=== PATIENT | female | born 1930 ===

== ENCOUNTER 2017-07-07 16:28 | Inpatient (IN) | payer MEDICARE, OTHER ==
--- NOTE | 2017-07-07 17:22 | C.PDOC ---
History Of Present Illness 86 yr old female presents to the ER referred from Dr. 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 Patient reports of chronic urinary incontinence. Patient is also s/p left ankle fracture on 07/05, states initially treated in [place] and is s/p partial casting by Dr. Zahraa BOYD. Patient states she has not had any evaluation since being in [place]. Denies chest pain, SOB, cough, abdominal pain, weakness or numbness. REFERRED FROM DR VITAL FOR SYNCOPE, VOMITING FURNACE ATTENDANT. SUBJ FEVER. NO COUGH, ABD PAIN. CHRONIC URINARY INCONT. S/P L ANKLE FX 07/05 INITIALLY TREATED IN [place]. S/P PARTIAL CASTING BY DR ZAHRAA BOYD. NO EVAL FOR FX SINCE BEING IN [place]. PT USING WC @ HOME, GETTING OUT OF BED. EXAM MILD DIST NONTOXIC HEENT NEG LUNGS NEG ABD NEG EXT +L POST LEG SPLINT W PARTIAL CASTING MALLEOLAR AREA. NO GROSS leg asymmetry. GOOD DISTAL PERFUSION L FOOT SKIN NEG REMAINDE RNEG Time Seen by Provider: 07/07/17 17:06 Chief Complaint (Nursing): Lower Extremity Problem/Injury History Per: Patient History/Exam Limitations: no limitations Onset/Duration Of Symptoms: Sudden Onset (FURNACE ATTENDANT) Past Medical History Reviewed: Historical Data, Nursing Documentation, Vital Signs Vital Signs: Last Vital Signs Temp 99.2 F 07/07/17 16:46 Pulse 112 H 07/07/17 18:45 Resp 20 07/07/17 18:45 BP 127/57 L 07/07/17 18:45 Pulse Ox 93 L 07/07/17 18:45 - Medical History PMH: Arthritis, Asthma Surgical History: Cholecystectomy - [facility] Procedures PERCUTAN NEEDLE BX OF THYROID GLAND (01/26/06) Family History: States: No Known Family Hx - Social History Hx Alcohol Use: No Hx Substance Use: No - Immunization History Hx Tetanus Toxoid Vaccination: No Hx Influenza Vaccination: No Hx Pneumococcal Vaccination: No Review Of Systems Except As Marked, All Systems Reviewed And Found Negative. Constitutional: Positive for: Fever (Subjective ) Respiratory: Negative for: Cough Gastrointestinal: Positive for: Vomiting. Negative for: Abdominal Pain Neurological: Negative for: Weakness, Numbness Physical Exam - Physical Exam Appears: Non-toxic, In Acute Distress (Mild ) Skin: Warm, Dry Head: Atraumatic, Normacephalic Neck: Normal, Normal ROM, Supple Chest: Symmetrical, No Tenderness Cardiovascular: Rhythm Regular, No Murmur Respiratory: Normal Breath Sounds, No Rales, No Rhonchi, No Stridor, No Wheezing Gastrointestinal/Abdominal: Normal Exam, Soft, No Tenderness, No Guarding, No Rebound Extremity: Other ((+) Left posterior leg splint with partial casting malleolar area. (-) Gross swelling. ) Neurological/Psych: Oriented x3, Normal Speech, Normal Motor, Normal Sensation ED Course And Treatment - Laboratory Results Result Diagrams: 07/07/17 18:12 07/07/17 18:12 ECG: Interpreted By Me ECG Rhythm: Sinus Tachycardia Interpretation Of ECG: TWI V2-V6 NEW COMPARED TO 2006 Rate From EC (BPM) O2 Sat by Pulse Oximetry: 93 (RA) Pulse Ox Interpretation: Abnormal - Radiology CXR: Interpreted by Me CXR Interpretation: Yes: No Acute Disease (ujnch prior) - Other Rad L ANKLE X-Ray: Interpreted by Me (TRIMAL DISPLACED) L TIB FIB X-Ray: Interpreted by Me (NEG) L FOOT X-Ray: Interpreted by Me (NEG) Progress - Re-Evaluation Re-evaluation Note: 07/07/17 18:01 PENDING CALLBACK PODIATRY 07/07/17 18:11 D/W PODIATRY RESIDENT WILL EVAL IN ER - Data Reviewed Data Reviewed: Lab, Diagnostic imaging, EKG, Old records - Critical Care Citical Care: Excluding Proc Time Critical Care Time: 120 minutes - Continuity of Care Discussed patient case with:: Patient, Family-HIPPA compliant Medical Decision Making Medical Decision Making: PLAN: * CT - Angio Chest * CXR * EKG * Troponin * VBG * CBC * CMP * Influenza * Urinalysis * Tylneol PO * Sodium Chloride IV Disposition Counseled Patient/Family Regarding: Studies Performed, Diagnosis - Disposition Disposition Time: 19:00 Condition: STABLE Forms: [facility] (Singaporean) - Clinical Impression Clinical Impression: Trimalleolar fracture, Tachycardia, Hypoxia, Fever - Scribe Statement The provider has reviewed the documentation as recorded by the Lucyibe Carin Burnett Provider Attestation: All medical record entries made by the Lucyibmitzy were at my direction and personally dictated by me. I have reviewed the chart and agree that the record accurately reflects my personal performance of the history, physical exam, medical decision making, and the department course for this patient. I have also personally directed, reviewed, and agree with the discharge instructions and disposition. Physician Patient Turnover Patient Signed Over To: Romain Best Handoff Comments: XIOMY CT, DISPO
[2017-07-07] MEDS ORDERED: Sodium Chloride 0.9% 1,000 ML IV ONE (17:23)
[2017-07-07 18:22] LABS: BASO % 0.4 % (0.0-2.0); EOS % 0.4 % (0.0-4.0); HEMATOCRIT 33.8 % (34.0-47.0); LYMPH # 0.5 K/uL (1.0-4.3); LYMPH % 6.2 % (20.0-40.0); MEAN CELL VOLUME 81.2 fL (81.0-99.0); MEAN CORPUSCULAR HEMOGLOBIN 27.5 pg (27.0-31.0); MEAN CORPUSCULAR HGB CONC 33.9 g/dL (33.0-37.0); MEAN PLATELET VOLUME 10.1 fL (7.2-11.7); MONO # 0.7 K/uL (0.0-0.8); MONO % 9.1 % (0.0-10.0); PLATELET COUNT 261 K/uL (130-400); RED CELL DISTRIBUTION WIDTH 14.2 % (11.5-14.5); WHITE BLOOD COUNT 7.3 K/uL (4.8-10.8)
[2017-07-07 18:24] LABS: CHLORIDE 101 mmol/L (98-107)
[2017-07-07 18:25] LABS: POTASSIUM 4.2 mmol/L (3.6-5.2); SODIUM 139 mmol/L (132-148)
[2017-07-07 18:27] LABS: VENOUS BLOOD GAS BASE EXCESS 3.5 mmol/L (0.0-2.0); VENOUS BLOOD GAS PCO2 40 mmHg (40-60); VENOUS BLOOD PH 7.45 (7.32-7.43)
[2017-07-07 18:27] LABS: ALB/GLOB RATIO 1.1 (1.0-2.1); ALKALINE PHOSPHATASE 67 U/L (38-126); ALT/SGPT 31 U/L (9-52); AST/SGOT 24 U/L (14-36); BILIRUBIN,TOTAL 0.7 mg/dL (0.2-1.3); BLOOD UREA NITROGEN 13 mg/dL (7-17); CARBON DIOXIDE 25 mmol/L (22-30); GFR AFRICAN-AMERICAN > 60; GLUCOSE,RANDOM 134 mg/dL (65-105); PHOSPHOROUS 2.3 mg/dL (2.5-4.5)
[2017-07-07 18:28] LABS: CALCIUM 8.5 mg/dl (8.6-10.4); MAGNESIUM 1.7 mg/dL (1.6-2.3)
--- NOTE | 2017-07-07 18:44 | RAD ---
HISTORY: Sepsis Patient COMPARISON: Chest x-ray performed 01/01/17 TECHNIQUE: Chest, one view. FINDINGS: Examination limited by habitus. LUNGS: No focal consolidation. Please note that chest x-ray has limited sensitivity for the detection of pulmonary masses. PLEURA: No significant pleural effusion identified. No definite pneumothorax . CARDIOVASCULAR: Heart size appears within normal limits. Atherosclerotic calcifications of the aortic knob. OSSEOUS STRUCTURES: Degenerative changes of the spine. VISUALIZED UPPER ABDOMEN: Unremarkable. OTHER FINDINGS: None. IMPRESSION: No focal consolidation, significant pleural effusion, or definite pneumothorax identified.
--- NOTE | 2017-07-07 18:54 | RAD ---
PROCEDURE: Left tibia and fibula radiographs Left ankle radiographs Left foot radiographs HISTORY: TRAUMA COMPARISON: None available. FINDINGS: Images are obtained through a cast which obscures osseous detail. Oblique mildly displaced fractures of the distal fibula and medial malleolus. The ankle mortise is disrupted. Evidence of oblique fracture involving the posterior distal tibia. Soft tissue swelling. No evidence of retained radiopaque foreign body. IMPRESSION: Oblique mildly displaced fractures of the distal fibula and medial malleolus. The ankle mortise is disrupted. Evidence of oblique fracture involving the posterior distal tibia. Soft tissue swelling.
[2017-07-07 19:12] LABS: EOSINOPHIL 1 % (0-4); NEUTROPHIL 85 % (50-75); REACTIVE LYMPHOCYTES 2 % (0-0); TOTAL CELLS COUNTED 100
[2017-07-07] MEDS ORDERED: Iodixanol 320 MG/ML 100 ML BOTTLE IV ONE (19:19)
--- NOTE | 2017-07-07 20:20 | CT ---
EXAM: CT Head Without Intravenous Contrast EXAM DATE/TIME: Exam ordered 07/07/2017 7:22 PM CLINICAL HISTORY: 86 years old, female; Signs and symptoms; Syncope and collapse TECHNIQUE: Axial computed tomography images of the head/brain without intravenous contrast. All CT scans at this facility use one or more dose reduction techniques, viz.: automated exposure control; ma/kV adjustment per patient size (including targeted exams where dose is matched to indication; i.e. head); or iterative reconstruction technique. COMPARISON: No relevant prior studies available. FINDINGS: Brain: There are bilateral basal ganglia calcifications. Minimal low density is noted within the periventricular white matter extending into the fong radiata and centrum semiovale bilaterally. 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 No edema. Ventricles: Unremarkable. No ventriculomegaly. Bones/joints: Unremarkable. No acute fracture. Soft tissues: Unremarkable. Sinuses: Unremarkable as visualized. No acute sinusitis. Mastoid air cells: Unremarkable as visualized. No mastoid effusion. IMPRESSION: 1. No acute findings. 2. Mild chronic microvascular ischemic change in the deep white matter
--- NOTE | 2017-07-07 20:30 | CT ---
EXAM: CT Angiography Chest With Intravenous Contrast EXAM DATE/TIME: Exam ordered 07/07/2017 5:25 PM CLINICAL HISTORY: 86 years old, female; Signs and symptoms; Shortness of breath; Additional info: SOB R/O pe TECHNIQUE: Axial computed tomographic angiography images of the chest with intravenous contrast using pulmonary embolism protocol. All CT scans at this facility use one or more dose reduction techniques, viz.: automated exposure control; ma/kV adjustment per patient size (including targeted exams where dose is matched to indication; i.e. head); or iterative reconstruction technique. MIP reconstructed images were created and reviewed. Coronal and sagittal reformatted images were created and reviewed. CONTRAST: 100 mL of visipaque 320 administered intravenously. COMPARISON: CR - CHEST TWO VIEWS (PA/LAT) 01/04/2016 11:54:53 AM FINDINGS: Pulmonary arteries: Unremarkable. No pulmonary embolism. Aorta: No acute findings. No thoracic aortic aneurysm. Lungs: 1.3 cm lobulated nodule is noted in the anterior segment of the left upper lobe. (Series 4 image 29). No mass. Pleural space: Unremarkable. No significant effusion. No pneumothorax. Heart: Unremarkable. No cardiomegaly. No significant pericardial effusion. No evidence of RV dysfunction. Mediastinum: There are sliding hiatal hernia. Air-fluid levels noted within the distal esophagus Bones/joints: No acute fracture. No dislocation. Soft tissues: Unremarkable. Lymph nodes: Unremarkable. No enlarged lymph nodes. Liver: The liver is low in density. Clips/Calcifications are noted within the liver IMPRESSION: 1. No pulmonary embolism. 2. Lobulated 1.3 cm nodule in the anterior segment of the left upper lobe. Recommend PET/CT, biopsy or resection. 3. Sliding hiatal hernia. Air-fluid level indicates gastroesophageal reflux disease.
[2017-07-07] MEDS ORDERED: Piperacillin/Tazobact 3.375 gm 100 ML IVPB STA (20:37)
[2017-07-07] MEDS ORDERED: Piperacillin/Tazobact 3.375 gm 100 ML IVPB ONE (21:01)
--- NOTE | 2017-07-07 22:10 | CP.PCM.HP ---
Past Patient History - Past Social History Smoking Status: Never Smoked - PULMONARY Hx Asthma: Yes - ENDOCRINE/METABOLIC Hx Diabetes Mellitus Type 2: Yes - MUSCULOSKELETAL/RHEUMATOLOGICAL Hx Arthritis: Yes - PSYCHIATRIC Hx Substance Use: No - SURGICAL HISTORY Hx Cholecystectomy: Yes - ANESTHESIA Hx Anesthesia: Yes Hx Anesthesia Reactions: No Meds Allergies/Adverse Reactions: Allergies Allergy/AdvReac Type Severity Reaction Status Date / Time No Known Allergies Allergy Verified 07/07/17 16:46 Results - Vital Signs Recent Vital Signs: Last Vital Signs Temp 99.9 F H 07/07/17 19:55 Pulse 106 H 07/07/17 19:55 Resp 19 07/07/17 19:55 BP 102/58 L 07/07/17 19:55 Pulse Ox 95 07/07/17 19:55 - Labs Result Diagrams: 07/07/17 18:12 07/07/17 18:12 Labs: Laboratory Results - last 24 hr 07/07/17 07/07/17 07/07/17 18:12 18:12 18:12 WBC 7.3 RBC 4.17 Hgb 11.5 Hct 33.8 L MCV 81.2 MCH 27.5 MCHC 33.9 RDW 14.2 Plt Count 261 MPV 10.1 Neut % (Auto) 83.9 H Lymph % (Auto) 6.2 L [place] % (Auto) 9.1 Eos % (Auto) 0.4 Baso % (Auto) 0.4 Neut # 6.2 Lymph # 0.5 L [place] # 0.7 Eos # 0.0 Baso # 0.0 Neutrophils % (Manual) 85 H Lymphocytes % (Manual) 6 L Reactive Lymphs % 2 H Monocytes % (Manual) 6 Eosinophils % (Manual) 1 Platelet Estimate Normal Anisocytosis (manual) Slight PT 11.4 INR 1.0 APTT 28 pO2 VBG pH VBG pCO2 VBG HCO3 VBG Total CO2 VBG O2 Sat (Calc) VBG Base Excess VBG Potassium Glucose Lactate Sodium 139 Potassium 4.2 Chloride 101 Carbon Dioxide 25 Anion Gap 17 BUN 13 Creatinine 0.8 Est GFR ( Amer) > 60 Est GFR (Non-Af Amer) > 60 Random Glucose 134 H Calcium 8.5 L Phosphorus 2.3 L Magnesium 1.7 Total Bilirubin 0.7 AST 24 ALT 31 Alkaline Phosphatase 67 Troponin I < 0.0120 Total Protein 8.0 Albumin 4.3 Globulin 3.7 Albumin/Globulin Ratio 1.1 Venous Blood Potassium Influenza Typ A,B (EIA) 07/07/17 07/07/17 18:23 18:24 WBC RBC Hgb Hct MCV MCH MCHC RDW Plt Count MPV Neut % (Auto) Lymph % (Auto) [place] % (Auto) Eos % (Auto) Baso % (Auto) Neut # Lymph # [place] # Eos # Baso # Neutrophils % (Manual) Lymphocytes % (Manual) Reactive Lymphs % Monocytes % (Manual) Eosinophils % (Manual) Platelet Estimate Anisocytosis (manual) PT INR APTT pO2 40 VBG pH 7.45 H VBG pCO2 40 VBG HCO3 27.1 VBG Total CO2 29.0 H VBG O2 Sat (Calc) 80.9 H VBG Base Excess 3.5 H VBG Potassium 3.9 Glucose 153 H Lactate 1.4 Sodium 136.0 Potassium Chloride 106.0 Carbon Dioxide Anion Gap BUN Creatinine Est GFR ( Amer) Est GFR (Non-Af Amer) Random Glucose Calcium Phosphorus Magnesium Total Bilirubin AST ALT Alkaline Phosphatase Troponin I Total Protein Albumin Globulin Albumin/Globulin Ratio Venous Blood Potassium 3.9 Influenza Typ A,B (EIA) Negative for flu a/b
[2017-07-07] MEDS: Piperacill/Tazo 3.375gm in Dex 3.375 GM/50 ML BAG IVPB SCH (22:30)
[2017-07-07 22:50] LABS: RBC URINE 2 /hpf (0-3); URINE BILIRUBIN NEGATIVE (NEGATIVE); URINE BLOOD NEGATIVE (NEGATIVE); URINE COLOR Yellow (YELLOW); URINE GLUCOSE (UA) NORMAL (Normal); URINE KETONE NEGATIVE (NEGATIVE); URINE LEUKOCYTE ESTERASE NEG Leu/uL (Negative); URINE PROTEIN NEGATIVE (NEGATIVE); WBC URINE < 1 /hpf (0-5)
--- NOTE | 2017-07-08 01:15 | CP.PCM.CON ---
History of Present Illness - History of Present Illness History of Present Illness: 86 year old female with PMH of DM, arthritis, esophagus hernia, vertigo and asthma was seen in the ED s/p 2 days right ankle fracture. Patient is Sinhala speaking. Patient is accompanied by her 3 daughters at bedside. Patient sustained the injury when she missed a step on the sidewalk, falling down. She rates her ankle pain 9/10 and describes the pain as a throbbing pain. She went to the ED in [place] where AO splint is applied. AO splint is clean, dry , and intact. She presents to the ED for syncope, vomitting, and fever. PSH: thyroidectomy, gall bladder removal, uterus removal SH: former smoker , denies alcohol use or elicited drug use Meds: See med list All: NKDA FH: unknown Past Patient History - Past Social History Smoking Status: Never Smoked - PULMONARY Hx Asthma: Yes - ENDOCRINE/METABOLIC Hx Diabetes Mellitus Type 2: Yes - MUSCULOSKELETAL/RHEUMATOLOGICAL Hx Arthritis: Yes - PSYCHIATRIC Hx Substance Use: No - SURGICAL HISTORY Hx Cholecystectomy: Yes - ANESTHESIA Hx Anesthesia: Yes Hx Anesthesia Reactions: No Meds Allergies/Adverse Reactions: Allergies Allergy/AdvReac Type Severity Reaction Status Date / Time No Known Allergies Allergy Verified 07/07/17 16:46 - Medications Medications: Current Medications Acetaminophen (Tylenol 325mg Tab) 650 mg PO Q8 PRN PRN Reason: Pain, moderate (4-7) Last Admin: 07/07/17 23:32 Dose: 650 mg Enoxaparin Sodium (Lovenox) 40 mg SC DAILY [facility] Sodium Chloride (Sodium Chloride 0.9%) 1,000 mls @ 100 mls/hr IV .Q10H ONE Stop: 07/08/17 03:22 Last Admin: 07/07/17 18:35 Dose: 100 mls/hr Piperacillin Sod/Tazobactam Sod (Zosyn 3.375 Gm Iv Premix) 3.375 gm in 50 mls @ 100 mls/hr IVPB Q6H [facility] Last Admin: 07/07/17 22:30 Dose: Not Given Pantoprazole Sodium (Protonix Ec Tab) 40 mg PO DAILY [facility] Physical Exam - Constitutional Appears: Well, Non-toxic, No Acute Distress - Extremities Exam Additional comments: left focused examined: Vasc: DP and PT faintly palpable, CFT <3 seconds to digits, temperature gradient WNL, non pitting edema to the left ankle Ortho: pain on palpation to the entire left ankle, MM unable to perform secondary to guarding, patient able to wiggle toes Neuro: denies numbness and tingling, gross sensation diminished Derm: ecchymosis noted to medial surface of the plantar foot and entire foot, no open lesions, no calf pain or tenderness elicited or noted with calf Left squeeze - Neurological Exam Neurological exam: Alert, Oriented x3 - Psychiatric Exam Psychiatric exam: Normal Affect, Normal Mood Results - Vital Signs Recent Vital Signs: Last Vital Signs Temp 98.4 F 07/07/17 23:09 Pulse 88 07/07/17 23:09 Resp 18 07/07/17 23:25 BP 116/56 L 07/07/17 23:09 Pulse Ox 98 07/07/17 23:25 - Labs Result Diagrams: 07/07/17 18:12 07/07/17 18:12 Labs: Laboratory Results - last 24 hr 07/07/17 07/07/17 07/07/17 18:12 18:12 18:12 WBC 7.3 RBC 4.17 Hgb 11.5 Hct 33.8 L MCV 81.2 MCH 27.5 MCHC 33.9 RDW 14.2 Plt Count 261 MPV 10.1 Neut % (Auto) 83.9 H Lymph % (Auto) 6.2 L [place] % (Auto) 9.1 Eos % (Auto) 0.4 Baso % (Auto) 0.4 Neut # 6.2 Lymph # 0.5 L [place] # 0.7 Eos # 0.0 Baso # 0.0 Neutrophils % (Manual) 85 H Lymphocytes % (Manual) 6 L Reactive Lymphs % 2 H Monocytes % (Manual) 6 Eosinophils % (Manual) 1 Platelet Estimate Normal Anisocytosis (manual) Slight PT 11.4 INR 1.0 APTT 28 pO2 VBG pH VBG pCO2 VBG HCO3 VBG Total CO2 VBG O2 Sat (Calc) VBG Base Excess VBG Potassium Glucose Lactate Sodium 139 Potassium 4.2 Chloride 101 Carbon Dioxide 25 Anion Gap 17 BUN 13 Creatinine 0.8 Est GFR ( Amer) > 60 Est GFR (Non-Af Amer) > 60 Random Glucose 134 H Calcium 8.5 L Phosphorus 2.3 L Magnesium 1.7 Total Bilirubin 0.7 AST 24 ALT 31 Alkaline Phosphatase 67 Troponin I < 0.0120 Total Protein 8.0 Albumin 4.3 Globulin 3.7 Albumin/Globulin Ratio 1.1 Venous Blood Potassium Urine Color Urine Clarity Urine pH Ur Specific [place] Urine Protein Urine Glucose (UA) Urine Ketones Urine Blood Urine Nitrate Urine Bilirubin Urine Urobilinogen Ur Leukocyte Esterase Urine WBC (Auto) Urine RBC (Auto) Ur Squamous Epith Cells Influenza Typ A,B (EIA) 07/07/17 07/07/17 07/07/17 18:23 18:24 22:44 WBC RBC Hgb Hct MCV MCH MCHC RDW Plt Count MPV Neut % (Auto) Lymph % (Auto) [place] % (Auto) Eos % (Auto) Baso % (Auto) Neut # Lymph # [place] # Eos # Baso # Neutrophils % (Manual) Lymphocytes % (Manual) Reactive Lymphs % Monocytes % (Manual) Eosinophils % (Manual) Platelet Estimate Anisocytosis (manual) PT INR APTT pO2 40 VBG pH 7.45 H VBG pCO2 40 VBG HCO3 27.1 VBG Total CO2 29.0 H VBG O2 Sat (Calc) 80.9 H VBG Base Excess 3.5 H VBG Potassium 3.9 Glucose 153 H Lactate 1.4 Sodium 136.0 Potassium Chloride 106.0 Carbon Dioxide Anion Gap BUN Creatinine Est GFR ( Amer) Est GFR (Non-Af Amer) Random Glucose Calcium Phosphorus Magnesium Total Bilirubin AST ALT Alkaline Phosphatase Troponin I Total Protein Albumin Globulin Albumin/Globulin Ratio Venous Blood Potassium 3.9 Urine Color Yellow Urine Clarity Clear Urine pH 6.0 Ur Specific [place] 1.048 H Urine Protein Negative Urine Glucose (UA) Normal Urine Ketones Negative Urine Blood Negative Urine Nitrate Negative Urine Bilirubin Negative Urine Urobilinogen 2.0 H Ur Leukocyte Esterase Neg Urine WBC (Auto) < 1 Urine RBC (Auto) 2 Ur Squamous Epith Cells 1 Influenza Typ A,B (EIA) Negative for flu a/b Assessment & Plan - Assessment and Plan (Free Text) Assessment: 86 year old female PMH of DM, arthritis, esophagus hernia, vertigo and asthma with left closed trimalleolar fracture Plan: Pt seen and examined in the ED Charts, labs, vitals reviewed Discussed plan in detail with attending Dr. Carrillo X-rays taken and reviewed- ankle fracture in poor alignment and reduction, ankle fracture most consistent with Lauge-Davis SER 3/4. AO splint removed to examine LE Reapplied AO splint U/S ordered to r/o DVT Patient will need surgery in the future for right ankle fracture Will continue to follow while in house. Will follow up in podiatry clinic in 1 week once d/c
[2017-07-08 03:40] VITALS: RESP 20
[2017-07-08] MEDS: Piperacill/Tazo 3.375gm in Dex 3.375 GM/50 ML BAG IVPB SCH ×4 (03:58→21:43)
[2017-07-08] MEDS: Enoxaparin 40 mg Syringe SC SCH (09:35)
[2017-07-08] MEDS: Pantoprazole 40 mg EC Tab PO SCH (09:36)
[2017-07-08] MEDS ORDERED: Pantoprazole 40 mg EC Tab PO SCH (10:00)
--- NOTE | 2017-07-08 13:27 | VASCLAB ---
PROCEDURE: Left Lower Extremity Venous Duplex Exam. HISTORY: Pain in limb, s/p fracture, r/o DVT PRIORS: None. TECHNIQUE: Left common femoral, femoral, popliteal and posterior tibial, peroneal and great saphenous veins were evaluated. Flow was assessed with color Doppler, compressibility, assessment of phasic flow and augmentation response. Report prepared by GEOVANNI Martinez FINDINGS: LEFT: 1. Common Femoral Vein: 1.1. Compressibility - Fully compressible: Thrombus - None : Flow - Phasic: Augmentation -Normal: Reflux - None. 2. Femoral Vein: 2.1. Compressibility - Fully compressible: Thrombus - None: Flow - Phasic: Augmentation -Normal: Reflux - None. 3. Popliteal Vein: 3.1. Compressibility - Fully compressible: Thrombus - None: Flow - Phasic: Augmentation -Normal: Reflux - None. 4. Great Saphenous Vein: (upper only) 4.1. Compressibility - Fully compressible: Thrombus - None: Flow - Phasic: Augmentation - Normal: Reflux - None. OTHER FINDINGS: The left posterior tibial and peroneal veins could not be examined, due to splint and casting. IMPRESSION: No evidence of deep or superficial vein thrombosis of the left lower extremity common femoral, femoral, popliteal and upper great saphenous veins. Normal venous flow noted in the right common femoral vein.
[2017-07-08] MEDS ORDERED: HYDROmorphone 0.5 mg/0.5 ml ISec IVP PRN ×2 (14:48→15:00)
--- NOTE | 2017-07-08 15:41 | CP.PCM.PN ---
Subjective - Date & Time of Evaluation Date of Evaluation: 07/08/17 Time of Evaluation: 11:30 - Subjective Subjective: Podiatry Progress Note-- Dr. Carrillo: 86 yo female pt w/ pmh DM, arthritis, esophageal hernia, vertigo,asthma seen at bedside this AM for f/u left ankle fracture. Pt is seen at bedside at time of visit. Appears to be in NAD. Leg seen not elevated at time of visit. Pt does complain of ankle pain but says pain meds are helping. Denies calf pain. Daughter present at bedside. Says patient has not put any weight on the left foot. No other complaints. Objective - Vital Signs/Intake and Output Vital Signs (last 24 hours): Temp Pulse Resp BP Pulse Ox 98.1 F 79 20 102/58 L 97 07/08/17 07:30 07/08/17 08:00 07/08/17 07:30 07/08/17 07:30 07/08/17 07:30 Intake and Output: 07/08/17 07/08/17 06:59 18:59 Intake Total 250 Output Total 250 Balance 0 - Medications Medications: Current Medications Acetaminophen (Tylenol 325mg Tab) 650 mg PO Q8 PRN PRN Reason: Pain, moderate (4-7) Last Admin: 07/08/17 14:24 Dose: 650 mg Enoxaparin Sodium (Lovenox) 40 mg SC DAILY [facility] Last Admin: 07/08/17 09:35 Dose: 40 mg Hydromorphone HCl (Dilaudid) 0.5 mg IVP Q6H PRN PRN Reason: Pain, severe (8-10) Last Admin: 07/08/17 15:04 Dose: 0.5 mg Piperacillin Sod/Tazobactam Sod (Zosyn 3.375 Gm Iv Premix) 3.375 gm in 50 mls @ 100 mls/hr IVPB Q6H [facility] Last Admin: 07/08/17 09:36 Dose: 100 mls/hr Influenza Virus Vaccine (Afluria) 45 mcg IM .ONCE ONE Stop: 07/13/17 10:01 Pantoprazole Sodium (Protonix Ec Tab) 40 mg PO DAILY [facility] Last Admin: 07/08/17 09:36 Dose: 40 mg Pneumococcal Polyvalent Vaccine (Pneumovax 23 Vaccine) 0.5 ml IM .ONCE ONE Stop: 07/10/17 10:01 - Labs Labs: 07/07/17 18:12 07/07/17 18:12 PT 11.4 SECONDS (9.7-12.2) 07/07/17 18:12 INR 1.0 07/07/17 18:12 APTT 28 SECONDS (21-34) 07/07/17 18:12 - Constitutional Appears: Non-toxic, No Acute Distress - Extremities Exam Extremities Exam: absent: Calf Tenderness Additional comments: LLE: Posterior splint appears c/d/i. Cap refill < 3 sec to all digits. Able to wiggle all toes - Neurological Exam Neurological Exam: Alert, Awake, Oriented x3 - Psychiatric Exam Psychiatric exam: Normal Affect, Normal Mood Assessment and Plan - Assessment and Plan (Free Text) Assessment: 86 yo female pt w/ closed, displaced trimalleolar fx of left ankle. Plan: Pt S&E at bedside Plan discussed with Dr. Carrillo in detail Charts, labs, vitals reviewed: afebrile L ankle xray: oblique mildly displaced fractures of distal fibula and medial malleolus. Ankle mortise is disrupted. Evidence of oblique fx involving the posterior distal tibia. Soft tissue swelling. Venous duplex: neg for DVT Advised daughter and pt that she will require surgery of ankle posterior splint to be kept c/d/i, strict NWB to LLE Left leg elevated on blankets and pillows, ice behind knee f/u [facility] podiatry clinic Dr. Tahmina Carrillo on Thursday to schedule surgery
--- NOTE | 2017-07-08 19:47 | CP.PCM.PN ---
Subjective - Date & Time of Evaluation Date of Evaluation: 07/08/17 Time of Evaluation: 11:40 - Subjective Subjective: clinically same Objective - Vital Signs/Intake and Output Vital Signs (last 24 hours): Temp Pulse Resp BP Pulse Ox 98.5 F 78 20 112/66 98 07/08/17 15:14 07/08/17 15:14 07/08/17 15:14 07/08/17 15:14 07/08/17 15:14 - Medications Medications: Current Medications Acetaminophen (Tylenol 325mg Tab) 650 mg PO Q8 PRN PRN Reason: Pain, moderate (4-7) Last Admin: 07/08/17 14:24 Dose: 650 mg Enoxaparin Sodium (Lovenox) 40 mg SC DAILY [facility] Last Admin: 07/08/17 09:35 Dose: 40 mg Hydromorphone HCl (Dilaudid) 0.5 mg IVP Q6H PRN PRN Reason: Pain, severe (8-10) Last Admin: 07/08/17 15:04 Dose: 0.5 mg Piperacillin Sod/Tazobactam Sod (Zosyn 3.375 Gm Iv Premix) 3.375 gm in 50 mls @ 100 mls/hr IVPB Q6H [facility] Last Admin: 07/08/17 16:30 Dose: 100 mls/hr Influenza Virus Vaccine (Afluria) 45 mcg IM .ONCE ONE Stop: 07/13/17 10:01 Pantoprazole Sodium (Protonix Ec Tab) 40 mg PO DAILY [facility] Last Admin: 07/08/17 09:36 Dose: 40 mg Pneumococcal Polyvalent Vaccine (Pneumovax 23 Vaccine) 0.5 ml IM .ONCE ONE Stop: 07/10/17 10:01 - Labs Labs: 07/07/17 18:12 07/07/17 18:12 PT 11.4 SECONDS (9.7-12.2) 07/07/17 18:12 INR 1.0 07/07/17 18:12 APTT 28 SECONDS (21-34) 07/07/17 18:12 - Constitutional Appears: Well - Head Exam Head Exam: ATRAUMATIC, NORMAL INSPECTION, NORMOCEPHALIC - Eye Exam Eye Exam: EOMI, Normal appearance, PERRL Pupil Exam: NORMAL ACCOMODATION, PERRL - ENT Exam ENT Exam: Mucous Membranes Moist, Normal Exam - Neck Exam Neck Exam: Full ROM, Normal Inspection. absent: Lymphadenopathy - Respiratory Exam Respiratory Exam: Decreased Breath Sounds - Cardiovascular Exam Cardiovascular Exam: REGULAR RHYTHM, +S1, +S2 - GI/Abdominal Exam GI & Abdominal Exam: Soft, Diminished Bowel Sounds - Rectal Exam Rectal Exam: Deferred
[2017-07-09] MEDS: Piperacill/Tazo 3.375gm in Dex 3.375 GM/50 ML BAG IVPB SCH ×2 (05:40→09:27)
[2017-07-09] MEDS ORDERED: Levothyroxine 100 MCG TAB PO SCH (06:30)
[2017-07-09 09:01] VITALS: PULSE 80
[2017-07-09] MEDS: Pantoprazole 40 mg EC Tab PO SCH (09:24)
[2017-07-09] MEDS: Enoxaparin 40 mg Syringe SC SCH (09:24)
[2017-07-09] MEDS ORDERED: metFORMIN 250 mg Tab PO SCH (10:00)
--- NOTE | 2017-07-09 16:16 | CP.PCM.PN ---
Subjective - Date & Time of Evaluation Date of Evaluation: 07/09/17 Time of Evaluation: 16:16 - Subjective Subjective: PT CLEARED FOR D/C HOME TODAY BY PODIATRY AND DR. Karin GIL. [facility] TO SEE PT AT HOME FOR HOME PHY THER. PT'S DAUGHTER ALSO MADE F/U APPT WITH THE CLINIC ON THURSDAY AFTERNOON WITH DR. CAMPOS. REFILL RX GIVEN TO PT FOR SOME HOME MEDS ( JANUVIA, METFORMIN, TEMAZEPAM, AND SYNTHROID). NEW RX GIVEN FOR PERCOCET ONLY FOR SEVERE PAIN; ZOFRAN PRN. ALL D/C AND F/U INFORMATION DISCUSSED WITH PT AND DAUGHTER AT LENGTH. NO FURTHER ORDERS . Objective - Vital Signs/Intake and Output Vital Signs (last 24 hours): Temp Pulse Resp BP Pulse Ox 98.1 F 80 20 117/64 96 07/09/17 08:00 07/09/17 08:00 07/09/17 08:00 07/09/17 08:00 07/09/17 08:00 Intake and Output: 07/09/17 07/09/17 06:59 18:59 Intake Total 340 Balance 340 - Medications Medications: Current Medications Acetaminophen (Tylenol 325mg Tab) 650 mg PO Q8 PRN PRN Reason: Pain, moderate (4-7) Last Admin: 07/08/17 14:24 Dose: 650 mg Enoxaparin Sodium (Lovenox) 40 mg SC DAILY [facility] Last Admin: 07/09/17 09:24 Dose: 40 mg Hydromorphone HCl (Dilaudid) 0.5 mg IVP Q6H PRN PRN Reason: Pain, severe (8-10) Last Admin: 07/08/17 15:04 Dose: 0.5 mg Piperacillin Sod/Tazobactam Sod (Zosyn 3.375 Gm Iv Premix) 3.375 gm in 50 mls @ 100 mls/hr IVPB Q6H [facility] Last Admin: 07/09/17 09:27 Dose: 100 mls/hr Influenza Virus Vaccine (Afluria) 45 mcg IM .ONCE ONE Stop: 07/13/17 10:01 Levothyroxine Sodium (Synthroid) 100 mcg PO DAILY@0630 [facility] Last Admin: 07/09/17 06:58 Dose: 100 mcg Metformin HCl (Glucophage) 250 mg PO BID [facility] Last Admin: 07/09/17 09:24 Dose: 250 mg Pantoprazole Sodium (Protonix Ec Tab) 40 mg PO DAILY [facility] Last Admin: 07/09/17 09:24 Dose: 40 mg Pneumococcal Polyvalent Vaccine (Pneumovax 23 Vaccine) 0.5 ml IM .ONCE ONE Stop: 07/10/17 10:01 Sitagliptin Phosphate (Januvia) 50 mg PO DAILY [facility] Last Admin: 07/09/17 09:23 Dose: 50 mg - Labs Labs: 07/07/17 18:12 07/07/17 18:12 PT 11.4 SECONDS (9.7-12.2) 07/07/17 18:12 INR 1.0 07/07/17 18:12 APTT 28 SECONDS (21-34) 07/07/17 18:12
[2017-07-09 16:21] VITALS: BP 121/70; TEMP 98; O2SAT 98
[2017-07-10] MEDS ORDERED: Pneumococcal 23-Valent Vaccine IM ONE (10:00)
[2017-07-13] MEDS ORDERED: Influenza Virus Vaccine (Afluria Inactive dont use ) IM ONE (10:00)
== END 2017-07-09 18:00 | disposition home health service (06) | DRG 312 ==
LOC: C.ER 16:28 → C.9E 20:57 → C.6T 22:49
PROVIDERS: ADMIT Internal Medicine Nephrology; ATTEND Internal Medicine Nephrology
DX: R55 Syncope and collapse (principal); S82.851D Displaced trimalleolar fracture of right lower leg, subsequent encounter for closed fracture with routine healing; R50.9 Fever, unspecified; R09.02 Hypoxemia; R11.10 Vomiting, unspecified; J45.909 Unspecified asthma, uncomplicated; R32 Unspecified urinary incontinence; E11.9 Type 2 diabetes mellitus without complications; M19.90 Unspecified osteoarthritis, unspecified site; W10.1XXD Fall (on)(from) sidewalk curb, subsequent encounter; Z87.891 Personal history of nicotine dependence; Z90.49 Acquired absence of other specified parts of digestive tract; Z90.710 Acquired absence of both cervix and uterus

== ENCOUNTER 2017-07-16 06:01 | Observation (INO) | payer MEDICARE, OTHER ==
[2017-07-13 12:30] VITALS: BMI 34.9
[2017-07-16] MEDS ORDERED: Lidocaine 2% Inj (20ml) ONE (07:45)
[2017-07-16] MEDS ORDERED: ceFAZolin IV 2 gm in Dextrose 1 GM/50 ML BAG IVPB ONE (07:45)
[2017-07-16] MEDS ORDERED: Bupivacaine 0.5% Inj(30mL) ONE ×2 (07:45→12:46)
[2017-07-16] MEDS ORDERED: Bacitracin Ointment 30 GM TUBE ONE (07:46)
[2017-07-16] MEDS ORDERED: Propofol 10 mg/ml Inj (20 ML) ONE (07:46)
[2017-07-16] MEDS ORDERED: Oxycodone/Acetaminophen 5/325 mg Tab PO PRN (11:03)
--- NOTE | 2017-07-16 11:14 | PCM.SURG1 ---
Surgeon's Initial Post Op Note - Surgeon's Notes Surgeon: Dr. Carrillo Client Support Professional: Melvin Kumar, PGY-3. Debby Rosen PGY-3 Type of Anesthesia: General LMA, Local Anesthesia Administered By: Dr. Rayo Pre-Operative Diagnosis: Left ankle fracture Operative Findings: See dictation Post-Operative Diagnosis: Left ankle fracture Operation Performed: Left ankle open reduction internal fixation Specimen/Specimens Removed: None Estimated Blood Loss: EBL {In ML}: 20 Blood Products Given: N/A Drains Used: No Drains Post-Op Condition: Good Date of Surgery/Procedure: 07/16/17 Time of Surgery/Procedure: 08:50
[2017-07-16] MEDS ORDERED: Albuterol-Ipratrop 3 mg / 0.5 (3 ml) UD INH STA (11:18)
[2017-07-16 11:47] LABS: CHLORIDE 98 mmol/L (98-107); SODIUM 133 mmol/L (132-148)
[2017-07-16 11:48] LABS: POTASSIUM 4.2 mmol/L (3.6-5.2)
[2017-07-16 11:50] LABS: GFR AFRICAN-AMERICAN > 60
[2017-07-16 11:51] LABS: BLOOD UREA NITROGEN 12 mg/dL (7-17); CALCIUM 8.6 mg/dl (8.6-10.4); CARBON DIOXIDE 24 mmol/L (22-30); GLUCOSE,RANDOM 221 mg/dL (65-105)
[2017-07-16] MEDS ORDERED: Dextrose 50% SYRINGE Inj (50 ml) IV PRN (12:01)
[2017-07-16] MEDS ORDERED: Glucagon Recombinant 1 mg Inj IM PRN (12:01)
--- NOTE | 2017-07-16 12:08 | CP.PCM.CON ---
<AnaShaun lieberman - Last Filed: 07/16/17 13:00> History of Present Illness - History of Present Illness History of Present Illness: 86 year old female with PMH of DM, arthritis, esophagus hernia, vertigo and asthma here for ORIF of ankle fracture and we are asked to see her as a Medical Consult. Patient is Icelandic speaking; translation done by me. She is feeling well after the surgery with no acute complaints except for some ankle pain; daughter is at bedside and is also speaking to the mother. 12 point review of systems is negative otherwise. PSH: thyroidectomy, gall bladder removal, uterus removal, most recent ORIF for ankle Fx SH: former smoker , denies alcohol use or elicited drug use, Meds: Please refer to [facility] Allergies: lactose intolerant FamHx: Noncontributory Past Patient History - Past Medical History & Family History Past Medical History?: Yes - Past Social History Smoking Status: Never Smoked - CARDIAC Hx Cardiac Disorders: No - PULMONARY Hx Respiratory Disorders: Yes Hx Asthma: Yes - NEUROLOGICAL Hx Neurological Disorder: Yes Hx Vertigo: Yes - HEENT Hx HEENT Problems: Yes Hx Cataracts: Yes (BILAT IOL) - RENAL Hx Chronic Kidney Disease: No - ENDOCRINE/METABOLIC Hx Endocrine Disorders: Yes Hx Diabetes Mellitus Type 2: Yes Other/Comment: HX THYROID CANCER THYRIODECTOMY - HEMATOLOGICAL/ONCOLOGICAL Hx Blood Disorders: Yes Hx Cancer: Yes (Thyroid) Hx Shingles: Yes - INTEGUMENTARY Hx Dermatological Problems: No - MUSCULOSKELETAL/RHEUMATOLOGICAL Hx Musculoskeletal Disorders: Yes Hx Arthritis: Yes Hx Falls: Yes - GASTROINTESTINAL Hx Gastrointestinal Disorders: Yes Hx Gall Bladder Disease: Yes Hx Gastroesophageal Reflux: Yes - GENITOURINARY/GYNECOLOGICAL Hx Genitourinary Disorders: Yes (UTERINE FIBROIDS) - PSYCHIATRIC Hx Psychophysiologic Disorder: No Hx Substance Use: No - SURGICAL HISTORY Hx Surgeries: Yes Hx Cataract Extraction: Yes Hx Cholecystectomy: Yes Hx Hysterectomy: Yes Hx Thyroidectomy: Yes - ANESTHESIA Hx Anesthesia: Yes Hx Anesthesia Reactions: No Hx Malignant Hyperthermia: No Has any member of the family had a problem w/ anesthesia?: No Meds Allergies/Adverse Reactions: Allergies Allergy/AdvReac Type Severity Reaction Status Date / Time lactose AdvReac NAUSEA Verified 07/14/17 09:20 - Medications Medications: Current Medications Acetaminophen (Tylenol 325mg Tab) 650 mg PO Q6 PRN PRN Reason: Pain, Mild (1-3) Aspirin (Ecotrin) 81 mg PO DAILY [facility] Calcium/Vitamin D (Oyster Shell Calcium/Vitamin D 500 Mg-200 Iu) 1 tab PO DAILY [facility] Dextrose (Dextrose 50% Inj) 0 ml IV STAT PRN; Protocol PRN Reason: Hyglycemia Protocol Dextrose (Glutose 15) 0 gm PO ONCE PRN; Protocol PRN Reason: Hypoglycemia Protocol Enoxaparin Sodium (Lovenox) 40 mg SC DAILY [facility] Folic Acid (Folic Acid) 1 mg PO DAILY [facility] Gabapentin (Neurontin) 100 mg PO DAILY [facility] Glucagon (Glucagen Diagnostic Kit) 0 mg IM STAT PRN; Protocol PRN Reason: Hypoglycemia Protocol Home Med (Atorvastatin [Lipitor]) 10 mg PO DAILY [facility] Home Med (Esomeprazole Magnesium [Nexium]) 40 mg PO DAILY [facility] Home Med (Multivit,Iron,Min 5/Folic Acid [Strovite Forte Caplet]) 1 tab PO DAILY [facility] Home Med (Pawlet-3 Fatty Acids [Pawlet-3]) 1,000 mg PO BID [facility] Hydromorphone HCl (Dilaudid) 0.5 mg IVP Q5M PRN PRN Reason: Pain, severe (8-10) Stop: 07/16/17 13:10 Dextrose (Dextrose 5% In Water 1000 Ml) 1,000 mls @ 0 mls/hr IV .Q0M PRN; Protocol; Per Protocol PRN Reason: Hypoglycemia Protocol Insulin Aspart (Novolog) 0 unit SC ACHS [facility] PRN Reason: Protocol Levothyroxine Sodium (Synthroid) 100 mcg PO ACB [facility] Ondansetron HCl (Zofran Inj) 4 mg IVP Q6H PRN PRN Reason: Nausea/Vomiting Oxycodone/Acetaminophen (Percocet 5/325 Mg Tab) 1 tab PO Q4H PRN PRN Reason: Pain, moderate (4-7) Stop: 07/19/17 11:04 Oxycodone/Acetaminophen (Percocet 5/325 Mg Tab) 2 tab PO Q4H PRN PRN Reason: Pain, severe (8-10) Stop: 07/19/17 13:01 Temazepam (Restoril) 30 mg PO HS PRN PRN Reason: Insomnia Physical Exam - Constitutional Appears: Non-toxic - Head Exam Head Exam: ATRAUMATIC - Eye Exam Eye Exam: EOMI Pupil Exam: PERRL - ENT Exam ENT Exam: Mucous Membranes Moist - Neck Exam Neck exam: Positive for: Full Rom. Negative for: Lymphadenopathy - Respiratory Exam Respiratory Exam: Clear to Auscultation Bilateral, NORMAL BREATHING PATTERN. absent: Rales, Rhonchi, Wheezes - Cardiovascular Exam Cardiovascular Exam: REGULAR RHYTHM - GI/Abdominal Exam GI & Abdominal Exam: Normal Bowel Sounds, Soft - Extremities Exam Extremities exam: Negative for: calf tenderness (there is a cast in place to the knee on the left side for recent ORIF; no blood is seen soaking through; patient is still unable to feel my fingers on toes for recent nerve block for surgery but can wiggle them when asked) - Back Exam Back exam: absent: CVA tenderness (L), CVA tenderness (R) - Neurological Exam Neurological exam: Alert, Oriented x3 - Psychiatric Exam Psychiatric exam: Normal Affect - Skin Skin Exam: Warm Results - Vital Signs Recent Vital Signs: Last Vital Signs Temp 98.6 F 07/16/17 11:00 Pulse 112 H 07/16/17 11:00 Resp 22 07/16/17 11:00 BP 147/70 07/16/17 11:00 Pulse Ox 91 L 07/16/17 11:00 - Labs Result Diagrams: 07/16/17 11:34 Labs: Laboratory Results - last 24 hr 07/16/17 07/16/17 07/16/17 06:46 11:16 11:34 PT 10.8 INR 1.0 APTT 31 D Sodium Potassium Chloride Carbon Dioxide Anion Gap BUN Creatinine Est GFR ( Amer) Est GFR (Non-Af Amer) POC Glucose (mg/dL) 111 H 241 H Random Glucose Calcium 07/16/17 11:34 PT INR APTT Sodium 133 Potassium 4.2 Chloride 98 Carbon Dioxide 24 Anion Gap 15 BUN 12 Creatinine 0.9 Est GFR ( Amer) > 60 Est GFR (Non-Af Amer) 60 POC Glucose (mg/dL) Random Glucose 221 H Calcium 8.6 Assessment & Plan - Assessment and Plan (Free Text) Assessment: 86yo F admitted for ORIF of ankle fracture, and medical consult for chronic medical conditions DM2; controlled and chronic -RISS and hypoglycemia protocol -hold januvia and metformin for now Hypothyroidism -c/w levothyroxine 100mcg daily HLD -c/w statin HS CAD -c/w aspirin 81mg Transient HTN -will monitor -if stays high will start ZION as patient is diabetic -would benefit from low dose ZION as outpatient regardless Anxiety/Sleep disturbance -c/w Temazepan HS ORIF L ankle -management as per podiatry -weight bearing exercises and pain control as per them Prophylaxis -PPI and Lovenox -Regular Diet -PT/OT Eval/Treat -Zofran/Tylenol/breathing tx PRN as needed -anticoagulation prophylaxis s/p ortho surgery; we recommend 35 days of anticoagulation s/p surgery for DVT with lovenox daily Case discussed and seen with Dr. Lynn Gallegos PGY2 Medicine Consult <Willy Grigsby - Last Filed: 07/16/17 16:47> Meds - Medications Medications: Current Medications Acetaminophen (Tylenol 325mg Tab) 650 mg PO Q6 PRN PRN Reason: Pain, Mild (1-3) Albuterol Sulfate (Albuterol 0.083% Inhal Simi (2.5 Mg/3 Ml) Ud) 2.5 mg INH Q4H PRN PRN Reason: SOB Aspirin (Ecotrin) 81 mg PO DAILY [facility] Calcium/Vitamin D (Oyster Shell Calcium/Vitamin D 500 Mg-200 Iu) 1 tab PO DAILY [facility] Dextrose (Dextrose 50% Inj) 0 ml IV STAT PRN; Protocol PRN Reason: Hyglycemia Protocol Dextrose (Glutose 15) 0 gm PO ONCE PRN; Protocol PRN Reason: Hypoglycemia Protocol Enoxaparin Sodium (Lovenox) 40 mg SC DAILY [facility] Folic Acid (Folic Acid) 1 mg PO DAILY [facility] Gabapentin (Neurontin) 100 mg PO DAILY [facility] Glucagon (Glucagen Diagnostic Kit) 0 mg IM STAT PRN; Protocol PRN Reason: Hypoglycemia Protocol Dextrose (Dextrose 5% In Water 1000 Ml) 1,000 mls @ 0 mls/hr IV .Q0M PRN; Protocol; Per Protocol PRN Reason: Hypoglycemia Protocol Insulin Aspart (Novolog) 0 unit SC ACHS [facility] PRN Reason: Protocol Levothyroxine Sodium (Synthroid) 100 mcg PO ACB [facility] Multivitamins (Hexavitamin) 1 tab PO DAILY [facility] [id number] Ethyl Esters (Lovaza) 1,000 gm PO BID [facility] Ondansetron HCl (Zofran Inj) 4 mg IVP Q6H PRN PRN Reason: Nausea/Vomiting Last Admin: 07/16/17 12:45 Dose: 4 mg Oxycodone/Acetaminophen (Percocet 5/325 Mg Tab) 1 tab PO Q4H PRN PRN Reason: Pain, moderate (4-7) Stop: 07/19/17 11:04 Oxycodone/Acetaminophen (Percocet 5/325 Mg Tab) 2 tab PO Q4H PRN PRN Reason: Pain, severe (8-10) Stop: 07/19/17 13:01 Last Admin: 07/16/17 16:17 Dose: 2 tab Pantoprazole Sodium (Protonix Ec Tab) 40 mg PO DAILY [facility] Rosuvastatin Calcium (Crestor) 5 mg PO DAILY [facility] Temazepam (Restoril) 30 mg PO HS PRN PRN Reason: Insomnia Results - Vital Signs Recent Vital Signs: Last Vital Signs Temp 97.5 F L 07/16/17 13:30 Pulse 79 07/16/17 13:30 Resp 18 07/16/17 14:21 BP 138/57 L 07/16/17 13:30 Pulse Ox 99 07/16/17 13:30 - Labs Result Diagrams: 07/16/17 11:34 Labs: Laboratory Results - last 24 hr 07/16/17 07/16/17 07/16/17 06:46 11:16 11:34 PT 10.8 INR 1.0 APTT 31 D Sodium Potassium Chloride Carbon Dioxide Anion Gap BUN Creatinine Est GFR ( Amer) Est GFR (Non-Af Amer) POC Glucose (mg/dL) 111 H 241 H Random Glucose Calcium 07/16/17 11:34 PT INR APTT Sodium 133 Potassium 4.2 Chloride 98 Carbon Dioxide 24 Anion Gap 15 BUN 12 Creatinine 0.9 Est GFR ( Amer) > 60 Est GFR (Non-Af Amer) 60 POC Glucose (mg/dL) Random Glucose 221 H Calcium 8.6 Attending/Attestation - Attestation I have personally seen and examined this patient.: Yes I have fully participated in the care of the patient.: Yes I have reviewed all pertinent clinical information: Yes Notes (Text): 07/16/17 16:46 Patient was seen shortly after resident. History, Physical, Assessment and Plan were gone over with the resident. Willy Grigsby D.O.
[2017-07-16] MEDS ORDERED: Albuterol 0.083% Inhal Sol (2.5 mg/3 mL) UD INH PRN (12:21)
[2017-07-16] MEDS: HYDROmorphone 0.5 mg/0.5 ml ISec IVP PRN ×2 (12:48→13:00)
--- NOTE | 2017-07-16 13:07 | RAD ---
PROCEDURE: Left Ankle Radiographs. HISTORY: s/p left ankle ORIF COMPARISON: Left ankle radiographs performed 07/07/17 FINDINGS: Images are obtained through a cast which obscures osseous detail. The patient is status post ORIF with metallic plate and screws traversing the distal tibia. Two metallic screws are noted within the distal medial aspect of the tibia please areas alignment appears grossly satisfactory. Lucent fracture line remains along the posterior aspect of the fibula. Soft tissue swelling. IMPRESSION: Unremarkable postoperative appearance of the left ankle as above.
--- NOTE | 2017-07-16 15:27 | RAD ---
PROCEDURE: Intraoperative Fluoroscopy. HISTORY: Trimalleolar ankle fracture FINDINGS: Fluoroscopic assistance was provided for left ankle open reduction internal fixation. Please refer to the operative report from
[2017-07-16] MEDS: Oxycodone/Acetaminophen 5/325 mg Tab PO PRN (16:17)
[2017-07-16] MEDS: (Novolog) Insulin Aspart, Recombinant 100 u/ml 10 ml vial SC SCH ×2 (18:32→21:53)
[2017-07-16] MEDS ORDERED: guaiFENesin 200 mg/10 ml Syrup UD PO PRN (23:55)
[2017-07-17 02:22] VITALS: RESP 20
[2017-07-17] MEDS ORDERED: Levothyroxine 100 MCG TAB PO SCH ×2 (07:30→08:15)
[2017-07-17 08:25] VITALS: BP 112/55; PULSE 86; TEMP 98; O2SAT 96
[2017-07-17] MEDS: (Novolog) Insulin Aspart, Recombinant 100 u/ml 10 ml vial SC SCH (08:34)
[2017-07-17] MEDS: Oxycodone/Acetaminophen 5/325 mg Tab PO PRN (09:38)
[2017-07-17] MEDS ORDERED: Enoxaparin 40 mg Syringe SC SCH (10:00)
[2017-07-17] MEDS ORDERED: Multiple Vitamins Tab PO SCH (10:00)
[2017-07-17] MEDS ORDERED: Pantoprazole 40 mg EC Tab PO SCH (10:00)
[2017-07-17] MEDS ORDERED: Calcium-Vit D 500 mg-200 Units Tab UD PO SCH (10:00)
--- NOTE | 2017-07-17 11:35 | CP.PCM.DIS ---
Provider - Provider Date of Admission: 07/16/17 11:03 Attending physician: Tahmina Carrillo DPM Primary care physician: Dr. Tahmina Carrillo DPM Consults: Hospitalist Service: Dr. Willy Grigsby Time Spent in preparation of Discharge (in minutes): 20 Hospital Course - Lab Results Lab Results: Most Recent Lab Values PT 10.8 SECONDS (9.7-12.2) 07/16/17 11:34 INR 1.0 07/16/17 11:34 APTT 31 SECONDS (21-34) D 07/16/17 11:34 Sodium 133 mmol/L (132-148) 07/16/17 11:34 Potassium 4.2 mmol/L (3.6-5.2) 07/16/17 11:34 Chloride 98 mmol/L (98-107) 07/16/17 11:34 Carbon Dioxide 24 mmol/L (22-30) 07/16/17 11:34 Anion Gap 15 (10-20) 07/16/17 11:34 BUN 12 mg/dL (7-17) 07/16/17 11:34 Creatinine 0.9 mg/dL (0.7-1.2) 07/16/17 11:34 Est GFR ( Amer) > 60 07/16/17 11:34 Est GFR (Non-Af Amer) 60 07/16/17 11:34 POC Glucose (mg/dL) 158 mg/dL (65-110) H 07/17/17 06:25 Random Glucose 221 mg/dL (65-105) H 07/16/17 11:34 Calcium 8.6 mg/dl (8.6-10.4) 07/16/17 11:34 - Hospital Course Hospital Course: 86 year old female underwent outpatient surgical intervention for left ankle fracture on 07/16/17 under genral anesthesia. Pt recieved post-operative left poplitieal block. Pt placed on overnight observational period, no acute post- operative events occurred. Pt completed physical therapy morning of 07/17/17, who recommend PAM which pt declining.. Pt set up with home physical therapy. Pt is stable for discharge. - Date & Time of H&P Date of H&P: 07/16/17 Time of H&P: 12:08 Discharge Exam - Head Exam Head Exam: ATRAUMATIC, NORMAL INSPECTION, NORMOCEPHALIC - Eye Exam Eye Exam: EOMI, Normal appearance - ENT Exam ENT Exam: Mucous Membranes Moist, Normal Exam - Respiratory Exam Respiratory Exam: Clear to PA & Lateral, NORMAL BREATHING PATTERN, UNREMARKABLE - GI/Abdominal Exam GI & Abdominal Exam: Normal Bowel Sounds, Unremarkable - Extremities Exam Additional comments: Left ankle posterior splint clean, dry, and intact. Digits freely movable to verbal prompting. - Neurological Exam Neurological exam: Alert, Oriented x3 - Psychiatric Exam Psychiatric exam: Normal Affect, Normal Mood Discharge Plan - Follow Up Plan Disposition: DISCHARGED TO HOME CARE Patient education suggested?: Yes Instructions: Narcotic-Analgesic/Acetaminophen (By mouth), Cephalexin (By mouth ), RICE Therapy (GEN), How to Choose and Use a Walker (GEN) Referrals: [facility] [Outside] Clinical Quality Measures - Date & Time of Discharge Summary Date of Discharge Summary: 07/17/17 Time of Discharge Summary: 11:43
[2017-07-17] MEDS ORDERED: Influenza Vaccine 60 mcg/0.5 mL SYR (4YR UP) IM ONE (13:00)
--- NOTE | 2017-07-17 14:34 | CP.PCM.PN ---
<Mahi Morrison - Last Filed: 07/17/17 14:37> Subjective - Date & Time of Evaluation Date of Evaluation: 07/17/17 Time of Evaluation: 07:00 - Subjective Subjective: Internal Medicine Consult for Dr. Noreen Grigsby Patient seen and examined at bedside. patient tolerating pain well. Patient denies difficulty urinating. Patient states she did not have a bowel movement but has flatus. Patient denies fever, chills, headache, shortness of breath. Patient admits to productive cough. Patient instructed on incentive spirometer usage. Objective - Vital Signs/Intake and Output Vital Signs (last 24 hours): Temp Pulse Resp BP Pulse Ox 98.0 F 86 20 112/55 L 96 07/17/17 08:24 07/17/17 08:24 07/17/17 08:24 07/17/17 08:24 07/17/17 08:24 Intake and Output: 07/17/17 07/17/17 06:59 18:59 Intake Total 120 Balance 120 - Labs Labs: 07/16/17 11:34 PT 10.8 SECONDS (9.7-12.2) 07/16/17 11:34 INR 1.0 07/16/17 11:34 APTT 31 SECONDS (21-34) D 07/16/17 11:34 - Constitutional Appears: Non-toxic - Head Exam Head Exam: NORMAL INSPECTION - Eye Exam Eye Exam: EOMI, Normal appearance - ENT Exam ENT Exam: Mucous Membranes Moist - Neck Exam Neck Exam: Full ROM - Respiratory Exam Respiratory Exam: NORMAL BREATHING PATTERN. absent: Accessory Muscle Use - Cardiovascular Exam Cardiovascular Exam: REGULAR RHYTHM, +S1, +S2. absent: Bradycardia, Tachycardia - GI/Abdominal Exam GI & Abdominal Exam: Soft. absent: Tenderness - Extremities Exam Additional comments: patient had an left ankle fracture ORIF. Left ankle wrapped in bandages. c/d/i - Neurological Exam Neurological Exam: Alert, Awake, Oriented x3 - Psychiatric Exam Psychiatric exam: Normal Affect, Normal Mood - Skin Skin Exam: Dry, Normal Color, Warm Assessment and Plan - Assessment and Plan (Free Text) Assessment: Assessment: 86yo F admitted for ankle fracture s/p ORIF. medical consult for chronic medical conditions DM2; controlled and chronic -RISS and hypoglycemia protocol -hold januvia and metformin for now Hypothyroidism -c/w levothyroxine 100mcg daily HLD -c/w statin HS CAD -c/w aspirin 81mg Transient HTN -will monitor -if stays high will start ZION as patient is diabetic -would benefit from low dose ZION as outpatient regardless Anxiety/Sleep disturbance -c/w Temazepan HS ORIF L ankle -management as per podiatry -weight bearing exercises and pain control as per them Prophylaxis -PPI and Lovenox -PT/OT -Zofran/Tylenol/breathing tx PRN as needed -anticoagulation prophylaxis s/p ortho surgery 35 days of anticoagulation recommended for DVT prophylaxis daily Patient denied sub acute rehab 07/17 patient discharged today 07/17/[address] Lynn Morrison, PGY1 <Willy Grigsby - Last Filed: 07/17/17 17:23> Objective - Vital Signs/Intake and Output Vital Signs (last 24 hours): Temp Pulse Resp BP Pulse Ox 98.0 F 86 20 112/55 L 96 07/17/17 08:24 07/17/17 08:24 07/17/17 08:24 07/17/17 08:24 07/17/17 08:24 Intake and Output: 07/17/17 07/17/17 06:59 18:59 Intake Total 120 Balance 120 - Labs Labs: 07/16/17 11:34 PT 10.8 SECONDS (9.7-12.2) 07/16/17 11:34 INR 1.0 07/16/17 11:34 APTT 31 SECONDS (21-34) D 07/16/17 11:34 Attending/Attestation - Attestation I have personally seen and examined this patient.: Yes I have fully participated in the care of the patient.: Yes I have reviewed all pertinent clinical information, including history, physical exam and plan: Yes Notes (Text): 07/17/17 17:18 Patient was seen and examined at 11:30 AM 07/17/17 Exam, assessment and plan were gone over with the resident. I confirmed with the patient's sister who spoke Monegasque that the patient hade enough of her home medication for her chronic medical issues. Medicine Team provided patient with Rx for Colace 100 mg PO TID PRN Constipation. I also explained to patient sister that if this medication is too expensive then patient could use 1 of 2 options if patient does not have a bowel movement in 2 to 3 days: Sunsweet Prune Juice 8 ounces with breakfast and with dinner OR Metamucil Powder (1 tablespoon in plenty of water 1x/day). I explained to sister that the Metamucil was the better option considering the high sugar content in the Prune Juice. I spoke with Podiatry Resident Dr. Almonte concerning anticoagulation for patient and he stated that Podiatry Team was sending patient home on Lovenox. I recommended to him that Nurse show patient how to administer and that Nurse witness proper administration of medication by patient. Medicine Team will sign off on patient. Willy Grigsby D.O.
[2017-07-17] MEDS ORDERED: Omega-3-Acid Ethyl Esters 1 GM Cap PO SCH (18:00)
[2017-07-19] MEDS ORDERED: Influenza Virus Vaccine 45 mcg/0.5 ml Syr (36 months - 7 yrs) IM ONE (10:00)
[2017-07-19] MEDS ORDERED: Influenza Vaccine 60 mcg/0.5 mL SYR (4YR UP) IM ONE (10:00)
--- NOTE | 2017-07-20 19:20 | PCM.OP ---
Operative Report - Operative Report Date of Surgery/Procedure: 07/16/17 Time of Surgery/Procedure: 08:50 Surgeon: Dr. Carrillo Vp Legal Affairs: Melvin Kumar PGY-3, Debby Rosen PGY-3 Anesthesia/Sedation: General and local Pre-Operative Diagnosis: Left ankle fracture Post-Operative Diagnosis: Left ankle fracture Indication for Surgery: The patient is a 86 year-old F with the above diagnoses. The patient slipped and fell and injured her left ankle 1 week ago. Patient required having a surgical intervention for her left ankle. The patient signed the consent after careful explanation of risks, benefits, complication and alternatives for surgical procedure. No guarantees were given nor implied. 2 gram Ancef IV were given to the pt hour prior to the procedure. NPO status was confirmed prior to taking pt to the OR. Operative Findings: Preparation: The patient was brought to the operating room and placed on the operating room table in supine position. A well-padded pneumatic thogh tourniquet was placed to the patient's Left Thigh. Once general anesthesia was achieved, the L Lower extremity was then prepped and draped in usual sterile manner. Esmarch was utilized to exsanguinate the patient's Left lower extremity. Pneumatic Thigh tourniquet was then inflated to 350 mmHg and procedure began. Procedure/Operation Description: #1. Left ankle open reduction and internal fixation. Attention was directed to the lateral aspect of left ankle and the fracture site was confirmed under the intra-operative fluoroscopy. An approximately 7 cm linear longitudinal incision was made overlying fibular staying central right over the bone. At this time, the incision was carried deep using sharp and blunt dissection, taking care to retract all vital neurovascular structures. All bleeders were cauterized and ligated as necessary. At the level of the periosteum, a sharp periosteal incision was made overlying the distal fibula to allow exposure to the fracture site. The periosteum was reflected with a sharp periosteal elevator to allow for visualization of the fracture site at this time. At this time, Utilizing 1 bone clamp, the fracture site was reduced brining the distal fibula back out to length. At this time, an oblique fracture at the ankle joint level was noted and a lag screw ( 3.5 x 22 mm cortical screw) was placed from ana-proximal to postero-distal with excellent fixation noted however patients bone quality was poor. At this time, a Synthes 7 hole one-third tubular plate was placed over the fracture site and utilizing standard AO techniques and principles, holes were filled with 3.5 x 20mm cortex screw, 3.5 x 16 mm cortex screw, 4.0 x 22mm cancellous screw, 4.0 x 18 mm cancellous screw and 3.5 x 14mm locking screw. Next multiple irrigations were performed with copious amount of normal sterile saline. All the screw locations were confirmed under the intra operative fluoroscopy. Attention was re-directed to the medial aspect of the distal tibia of the right lower extremity. Under the intra-operative fluoroscopy , two of 0.062 k wires were inserted from the inferior aspect of the medial malleolus parallel to the medial aspect of the tibia. The k wires location was confirmed under the intra-operative fluoroscopy. Next, based on AO technique and principles, the fracture site was fixed with 3.5 x 50mm and 3.5 mm x 46 mm cannulated screws. Next temporary fixated k wares were removed. The screw locations were confirmed under intraoperative fluoroscopy. The surgical site was irrigated with copious amount of normal sterile saline. Procedure #2: Left ankle syndesmosis repair. At this time, under the intra-operative fluoroscopy, extra rotation exam was performed and the syndesmotic tear was confirmed. Next attention was re-directed to the lateral aspect of the fibular bone and through one of the fibular plate hole, Drill all four cortices approximately 1.5 cm above the ankle joint in the transmalleolar plane, k wire was driven from the fibular bone to tibia bone. Next, Utilizing 3.7mm cannulated Drill bit was advanced over the k wire. Next, the Arthrex 2-0 fiberwire tightrope was inserted through the hole and the one button was sit on the medial aspect of the tibia and lateral aspect of the fibular bone. The compression was excellent and was confirmed with intraoperative fluoroscopy. The surgical site was irrigated with copious amounts of sterile normal saline. Deep tissues were reapproximated with #3-0 and #4-0 size vicryl and Skin was reapproximated with #4-0 Nylon as vertical mattress suture technique. Also medial malleolus surgical site skin was reapproximated with #4-0 Nylon. Left ankle ( Saphenous nerve area) was infiltrated with 10 ml of 0.5% Marcaine plain. Left ankle was dressed with Xeroform, 4x4, DSD and posterior splint with AO Splint were applied. Patient will be on non-weight bearing for 4-6 weeks. Estimated Blood Loss: 15cc Complications: None Discharge & Condition: The patient tolerated the anesthesia and procedure well and was escorted to the recovery room with vital signs stable and neurovascular status intact to the Left foot. This patient will follow up with Dr. Carrillo at [facility].
== END 2017-07-17 14:18 | disposition home health service (06) ==
LOC: C.SDS 06:01 → C.9E 11:03 → C.6T 11:47
PROVIDERS: ADMIT Podiatrist Foot & Ankle Surgery; ATTEND Podiatrist Foot & Ankle Surgery
DX: S82.852A Displaced trimalleolar fracture of left lower leg, initial encounter for closed fracture (principal)
CPT/HCPCS: 27792; 36415; 73600; 76000; 80048; 82948; 85610; 85730; 94640; 96372; 97162; 97530; C1713; C1769; G0378; G8978; G8979; J0690; J1170; J1650; J2001; J2405; J2704; J3010

== ENCOUNTER 2019-03-01 14:11 | Outpatient (CLI) | payer MEDICARE, OTHER | END 2019-03-01 14:12 | disposition home or self-care (01) | LOC: C.MAMMO 14:12 ==